=== PATIENT | female | born 1990 | race American Indian/Alaskan Native ===

== ENCOUNTER 2017-05-02 08:17 | Outpatient (CLI) | payer MEDICAID ==
--- NOTE | 2017-05-02 09:38 | Ultrasound Report ---
Limited abdominal ultrasound: Abdominal pain. Images of the liver demonstrates a circumscribed and slightly elongated homogeneous nodule of increased density measuring 11 mm in the right lobe of the liver. No increase flow pattern noted. The liver is not otherwise remarkable. The pancreas is normal. The gallbladder wall is thickened measuring 6.4 mm. There is a shadowing intraluminal mass measuring 12 mm. No pericholecystic fluid. The CBD diameter is 3 mm. The right renal length is 11.3 cm and the kidney is echogenically unremarkable. The transverse diameter of the proximal abdominal aorta is 18 mm and the mid aorta 15 mm. Impressions: 1. Gallstone with nonspecific gallbladder wall thickening. Cholecystitis is a consideration. 2. The echogenic density in the liver most likely represents an hemangioma. Recommend ultrasound followup in 6 months.
== END 2017-05-02 08:18 | disposition home or self-care (01) ==
LOC: SPVWC 08:17
PROVIDERS: ATTEND Obstetrics & Gynecology
DX: K80.20 Calculus of gallbladder without cholecystitis without obstruction (principal); K82.8 Other specified diseases of gallbladder; K76.89 Other specified diseases of liver
CPT/HCPCS: 76705